=== PATIENT | male | born 1980 | race Caucasian/White ===

== ENCOUNTER 2022-05-10 17:32 | Inpatient (IN) | payer MEDICAID ==
[~2022-05-10] VITALS: Ht 175.3 cm; Wt 82.1 kg
[2022-05-10] MEDS ORDERED: CEFEPIME 1 GM in IV D5W 50 ML IV ONE (18:00)
[2022-05-10] MEDS ORDERED: VANCOMYCIN 1 GM in IV D5W 250 ML IV ONE (18:00)
[2022-05-10] MEDS ORDERED: IV NS 0.9% 1,000 ML BAG IV ONE (18:00)
[2022-05-10 18:18] LABS: BASOPHILS # (AUTO) 0.1 K/uL (0.0-0.2); EOSINOPHILS % (AUTO) 4.9 % (0.0-6.0); HEMATOCRIT 29 % (39-51); HEMOGLOBIN 9.2 g/dL (13.5-17.5); LYMPHOCYTES # (AUTO) 2.4 K/uL (0.8-4.8); LYMPHOCYTES % (AUTO) 30.1 % (20.0-44.0); MEAN CORPUSCULAR HGB CONC 32 g/dl (31.0-36.0); MEAN CORPUSCULAR VOLUME 76 fL (80-96); MONOCYTES # (AUTO) 0.6 K/uL (0.1-1.30); MONOCYTES % (AUTO) 7.1 % (2.0-12.0); NEUTROPHILS # (AUTO) 4.5 K/uL (1.8-8.9); NEUTROPHILS % (AUTO) 56.9 % (43.0-81.0); PLATELET COUNT (AUTO) 340 K/uL (150-450); RED BLOOD CELL COUNT(AUTO) 3.81 MIL/uL (4.5-6.0); WHITE BLOOD COUNT (AUTO) 7.9 K/uL (4.3-11.0)
[2022-05-10 18:48] LABS: CALCIUM, SERUM 8.8 mg/dL (8.5-10.1); CREATININE 0.9 mg/dL (0.6-1.3)
[2022-05-10] MEDS ORDERED: BUPR300T52 PO (18:49)
[2022-05-10] MEDS ORDERED: DIPH-1062 PO (18:49)
[2022-05-10] MEDS ORDERED: ACET-2605 PO (18:49)
[2022-05-10] MEDS ORDERED: BACL20TA PO (18:49)
[2022-05-10] MEDS ORDERED: ASCO-495 PO (18:49)
[2022-05-10] MEDS ORDERED: LACT1CAP71 PO (18:49)
[2022-05-10] MEDS ORDERED: ROPI0.255 PO (18:49)
[2022-05-10] MEDS ORDERED: PHEN125O3 PO (18:49)
[2022-05-10] MEDS ORDERED: CALC500T52 PO (18:49)
[2022-05-10] MEDS ORDERED: ATOR20TA PO (18:49)
[2022-05-10] MEDS ORDERED: PRAZ1CAP5 PO (18:49)
[2022-05-10] MEDS ORDERED: FERR325T23 PO (18:49)
[2022-05-10] MEDS ORDERED: POLY17PO4 PO (18:49)
[2022-05-10] MEDS ORDERED: VANC1VIA4 IV (18:49)
[2022-05-10] MEDS ORDERED: LEVE500T9 PO (18:49)
[2022-05-10] MEDS ORDERED: FAMO20TA8 PO (18:49)
[2022-05-10] MEDS ORDERED: METH5TAB2 PO (18:49)
[2022-05-10] MEDS ORDERED: ACET-868 PO (18:49)
[2022-05-10] MEDS ORDERED: ESCI20TA PO (18:49)
[2022-05-10] MEDS ORDERED: CEFT1VIA15 IM (18:49)
[2022-05-10] MEDS ORDERED: TRAZ-257 PO (18:49)
[2022-05-10] MEDS ORDERED: MENT3.5O TP (18:49)
[2022-05-10] MEDS ORDERED: TAMS-12 PO (18:49)
[2022-05-10] MEDS ORDERED: GABA600T12 PO (18:49)
[2022-05-10] MEDS ORDERED: ZOLP5TAB2 PO (18:49)
[2022-05-10] MEDS ORDERED: ZINC50TA69 PO (18:49)
[2022-05-10] MEDS ORDERED: FOLI0.4T6 PO (18:49)
[2022-05-10] MEDS ORDERED: AMIN30LI2 PO (18:49)
[2022-05-10] MEDS ORDERED: PETR113O TP (18:49)
[2022-05-10] MEDS ORDERED: METH10TA2 PO (18:49)
[2022-05-10] MEDS ORDERED: MULT-24 PO (18:49)
[2022-05-10] MEDS ORDERED: PANT40TA2 PO (18:49)
[2022-05-10 18:50] LABS: POTASSIUM 2.8 mmol/L (3.5-5.1)
[2022-05-10 18:59] LABS: BILIRUBIN,DIRECT 0.1 mg/dL (0.0-0.2); BILIRUBIN,TOTAL 0.2 mg/dL (0.2-1.0)
[2022-05-10 19:00] LABS: TOTAL PROTEIN, SERUM 8.4 g/dL (6.4-8.2)
[2022-05-10] MEDS ORDERED: IV PREMIX D5 1/2NS + KCL 1,000 ML IV ONE ×2 (19:00→19:13)
[2022-05-10] MEDS ORDERED: METHADONE HCL 5 MG TABLET PO SCH (19:30)
[2022-05-10 19:48] LABS: BILIRUBIN,URINE NEGATIVE (NEGATIVE); COLOR,URINE YELLOW (YELLOW); LEUKOCYTE ESTERASE ,URINE LARGE (NEGATIVE); NITRITE, URINE POSITIVE (NEGATIVE); PROTEIN,URINE NEGATIVE (NEGATIVE); UGLUCOSE NEGATIVE (NEGATIVE); UROBILINOGEN,URINE 0.2 EU/dL (0.2)
[2022-05-10 20:05] LABS: BACTERIA,URINE MANY /HPF (None Seen); SQUAMOUS EPITHELIAL CELL,UR None Seen /HPF (None Seen); WBC,URINE TOO NUMEROUS TO COUN /HPF (0-3)
[2022-05-10 21:43] VITALS: BP 114/67
[2022-05-10] MEDS ORDERED: Z GUARD REMEDY 4 OZ OINT TP PRN (23:30)
[2022-05-10] MEDS ORDERED: ZOLPIDEM TARTRATE 5 MG TABLET PO PRN (23:30)
[2022-05-10] MEDS ORDERED: diphenhydrAMINE HCL 25 MG CAPSULE PO PRN (23:30)
[2022-05-10] MEDS ORDERED: ACETAMINOPHEN 325 MG TABLET PO PRN (23:30)
[2022-05-10] MEDS ORDERED: METHADONE HCL 5 MG TABLET PO PRN (23:30)
[2022-05-10] MEDS ORDERED: MAGNESIUM HYDROXIDE 30 ML UDC PO PRN (23:30)
[2022-05-10] MEDS ORDERED: MAG HYDROX/AL HYDROX/SIMETH 30 ML UDC PO PRN (23:30)
[2022-05-11] MEDS: ENOXAPARIN SODIUM 40 MG/0.4 ML DISP.SYRIN SQ SCH ×2 (00:29→20:54)
[2022-05-11] MEDS ORDERED: HYDROMORPHONE 1 MG/1 ML DISP.SYRIN IV ONE (00:30)
[2022-05-11 06:27] LABS: BASOPHILS % (AUTO) 0.5 % (0.0-2.0); EOSINOPHILS % (AUTO) 3.4 % (0.0-6.0); HEMATOCRIT 28 % (39-51); HEMOGLOBIN 8.8 g/dL (13.5-17.5); LYMPHOCYTES # (AUTO) 1.8 K/uL (0.8-4.8); LYMPHOCYTES % (AUTO) 25.6 % (20.0-44.0); MEAN CORPUSCULAR HGB CONC 32 g/dl (31.0-36.0); MEAN CORPUSCULAR VOLUME 77 fL (80-96); MONOCYTES # (AUTO) 0.6 K/uL (0.1-1.30); MONOCYTES % (AUTO) 9.3 % (2.0-12.0); NEUTROPHILS # (AUTO) 4.2 K/uL (1.8-8.9); NEUTROPHILS % (AUTO) 61.2 % (43.0-81.0); PLATELET COUNT (AUTO) 328 K/uL (150-450); RED BLOOD CELL COUNT(AUTO) 3.61 MIL/uL (4.5-6.0); WHITE BLOOD COUNT (AUTO) 6.9 K/uL (4.3-11.0)
[2022-05-11 07:00] LABS: CALCIUM, SERUM 8.9 mg/dL (8.5-10.1); CREATININE 0.8 mg/dL (0.6-1.3)
[2022-05-11 07:19] LABS: THYROID STIMULATING HORMONE 4.513 uIU/mL (0.358-3.74)
[2022-05-11 08:00] VITALS: BP 115/72
[2022-05-11] MEDS ORDERED: POTASSIUM CHLORIDE 20 MEQ TAB.PRT.SR PO ONE (08:00)
[2022-05-11] MEDS: TAMSULOSIN 0.4 MG CAP.SR.24H PO SCH (08:37)
[2022-05-11] MEDS: PHENYTOIN EXTENDED RELEASE 100 MG CAPSULE PO SCH ×2 (08:37→20:54)
[2022-05-11] MEDS: FOLIC ACID 1 MG TABLET PO SCH (08:37)
[2022-05-11] MEDS: METHADONE HCL 10 MG TABLET PO SCH ×2 (08:38→16:39)
[2022-05-11] MEDS: FERROUS SULFATE (325 MG) 325 MG/TAB TABLET PO SCH (08:38)
[2022-05-11] MEDS: LEVETIRACETAM (250 MG) 250 MG TABLET PO SCH ×2 (08:38→20:54)
[2022-05-11] MEDS: VANCOMYCIN 0.75 GM in IV D5W 250 ML IV SCH ×3 (08:39→23:44)
[2022-05-11] MEDS: LACTOBACILLUS RHAMNOSUS GG 1 EACH CAP.SPRINK PO SCH ×3 (08:39→16:39)
[2022-05-11] MEDS: PANTOPRAZOLE 40 MG TABLET.DR PO SCH (08:39)
[2022-05-11] MEDS: ATORVASTATIN 10 MG TABLET PO SCH (08:39)
[2022-05-11] MEDS: BACLOFEN (10 MG) 10 MG TABLET PO SCH ×3 (08:39→16:39)
[2022-05-11] MEDS: ESCITALOPRAM OXALATE (10 MG) 10 MG TABLET PO SCH (08:39)
[2022-05-11] MEDS: CALCIUM CARBONATE (1250) 500 MG TABLET PO SCH ×2 (08:57→20:55)
[2022-05-11] MEDS: ASCORBIC ACID 500 MG TABLET PO SCH (08:57)
[2022-05-11] MEDS: ZINC SULFATE 220 MG CAPSULE PO SCH (08:57)
[2022-05-11] MEDS: BUPROPION XL 150 MG TAB.ER.24 PO SCH (08:57)
[2022-05-11] MEDS: GABAPENTIN 300 MG CAPSULE PO SCH ×3 (08:57→16:39)
[2022-05-11] MEDS: MULTIVITAMINS,THERAGRAN 1 UDTAB TABLET PO SCH (08:57)
[2022-05-11] MEDS: PROSOURCE / PROSTAT (PYXIS) 30 ML UDC PO SCH ×2 (08:57→16:40)
[2022-05-11] MEDS: POLYETHYLENE GLYCOL 3350 17 GM POWD.PACK PO SCH (08:58)
[2022-05-11] MEDS: ONDANSETRON HCL/PF 4 MG/2 ML VIAL IVP PRN (09:07)
[2022-05-11 09:16] LABS: BAND % (MANUAL) 6 % (0.0-5.0); EOSINOPHILS % (MANUAL) 3 % (0-4); LYMPHOCYTES % (MANUAL) 30 % (16-48); MONOCYTES % (MANUAL) 7 % (0-11.0); NEUTROPHILS % (MANUAL) 54 (42-76)
[2022-05-11] MEDS: CEFEPIME 1 GM in IV D5W 50 ML IV SCH ×2 (11:12→20:50)
[2022-05-11] MEDS ORDERED: SILVER NITRATE APPLICATOR 1 EA BOX TP STA (12:35)
[2022-05-11] MEDS ORDERED: LIDOCAINE 1%-EPI 1:100,000 50 ML VIAL IJ STA (12:35)
[2022-05-11] MEDS: SOD FERRIC GLUC 125 MG in IV NS 0.9% 100 ML IV SCH (14:06)
[2022-05-11 20:00] VITALS: BP 102/49
[2022-05-11] MEDS: METHADONE HCL 10 MG TABLET PO PRN (20:10)
[2022-05-11] MEDS: DAKINS QUARTER STRENGTH (0.125%) 480 ML BOTTLE TOP SCH (21:41)
[2022-05-11] MEDS: TRAZODONE 50 MG TABLET PO SCH (21:43)
[2022-05-11] MEDS: PRAZOSIN HCL 1 MG CAPSULE PO SCH (21:43)
[2022-05-11] MEDS: ropiniROLE 0.5 MG TABLET PO SCH (21:44)
[2022-05-12] MEDS: METHADONE HCL 10 MG TABLET PO PRN ×4 (06:48→21:08)
[2022-05-12 08:00] VITALS: BP 108/63
[2022-05-12] MEDS: VANCOMYCIN 0.75 GM in IV D5W 250 ML IV SCH (08:00)
[2022-05-12 08:39] LABS: CALCIUM, SERUM 8.6 mg/dL (8.5-10.1); CREATININE 0.7 mg/dL (0.6-1.3); POTASSIUM 3.4 mmol/L (3.5-5.1)
[2022-05-12 08:48] LABS: BASOPHILS % (AUTO) 0.4 % (0.0-2.0); EOSINOPHILS % (AUTO) 6.5 % (0.0-6.0); HEMATOCRIT 27 % (39-51); HEMOGLOBIN 8.6 g/dL (13.5-17.5); LYMPHOCYTES # (AUTO) 1.7 K/uL (0.8-4.8); LYMPHOCYTES % (AUTO) 27.3 % (20.0-44.0); MEAN CORPUSCULAR HGB CONC 32 g/dl (31.0-36.0); MEAN CORPUSCULAR VOLUME 77 fL (80-96); MONOCYTES # (AUTO) 0.5 K/uL (0.1-1.30); MONOCYTES % (AUTO) 8.5 % (2.0-12.0); NEUTROPHILS # (AUTO) 3.6 K/uL (1.8-8.9); NEUTROPHILS % (AUTO) 57.3 % (43.0-81.0); PLATELET COUNT (AUTO) 314 K/uL (150-450); RED BLOOD CELL COUNT(AUTO) 3.51 MIL/uL (4.5-6.0); WHITE BLOOD COUNT (AUTO) 6.2 K/uL (4.3-11.0)
[2022-05-12] MEDS: POLYETHYLENE GLYCOL 3350 17 GM POWD.PACK PO SCH (09:00)
[2022-05-12] MEDS: FOLIC ACID 1 MG TABLET PO SCH (09:25)
[2022-05-12] MEDS: LEVETIRACETAM (250 MG) 250 MG TABLET PO SCH ×2 (09:26→20:57)
[2022-05-12] MEDS: GABAPENTIN 300 MG CAPSULE PO SCH ×3 (09:26→16:25)
[2022-05-12] MEDS: ASCORBIC ACID 500 MG TABLET PO SCH (09:27)
[2022-05-12] MEDS: MULTIVITAMINS,THERAGRAN 1 UDTAB TABLET PO SCH (09:27)
[2022-05-12] MEDS: TAMSULOSIN 0.4 MG CAP.SR.24H PO SCH (09:28)
[2022-05-12] MEDS: ATORVASTATIN 10 MG TABLET PO SCH (09:28)
[2022-05-12] MEDS: PHENYTOIN EXTENDED RELEASE 100 MG CAPSULE PO SCH ×2 (09:29→20:56)
[2022-05-12] MEDS: FERROUS SULFATE (325 MG) 325 MG/TAB TABLET PO SCH (09:29)
[2022-05-12] MEDS: METHADONE HCL 10 MG TABLET PO SCH ×2 (09:30→16:25)
[2022-05-12] MEDS: PANTOPRAZOLE 40 MG TABLET.DR PO SCH (09:31)
[2022-05-12] MEDS: BACLOFEN (10 MG) 10 MG TABLET PO SCH ×3 (09:31→16:25)
[2022-05-12] MEDS: CALCIUM CARBONATE (1250) 500 MG TABLET PO SCH ×2 (09:31→20:56)
[2022-05-12] MEDS: ZINC SULFATE 220 MG CAPSULE PO SCH (09:32)
[2022-05-12] MEDS: ESCITALOPRAM OXALATE (10 MG) 10 MG TABLET PO SCH (09:32)
[2022-05-12] MEDS: PROSOURCE / PROSTAT (PYXIS) 30 ML UDC PO SCH ×2 (09:33→17:50)
[2022-05-12] MEDS: CEFEPIME 1 GM in IV D5W 50 ML IV SCH (09:33)
[2022-05-12] MEDS: LACTOBACILLUS RHAMNOSUS GG 1 EACH CAP.SPRINK PO SCH ×3 (09:48→16:25)
[2022-05-12] MEDS: BUPROPION XL 150 MG TAB.ER.24 PO SCH (09:59)
[2022-05-12] MEDS ORDERED: POTASSIUM CHLORIDE 20 MEQ TAB.PRT.SR PO SCH (10:00)
[2022-05-12] MEDS: DAKINS QUARTER STRENGTH (0.125%) 480 ML BOTTLE TOP SCH (10:00)
[2022-05-12] MEDS: SOD FERRIC GLUC 125 MG in IV NS 0.9% 100 ML IV SCH (13:57)
[2022-05-12 16:00] VITALS: BP 95/60
[2022-05-12] MEDS: VANCOMYCIN HCL 0.75 GM in IV D5W 250 ML IV SCH (17:51)
[2022-05-12 20:00] VITALS: BP 98/56
[2022-05-12] MEDS: ENOXAPARIN SODIUM 40 MG/0.4 ML DISP.SYRIN SQ SCH (20:55)
[2022-05-12] MEDS: MEROPENEM 500 MG in IV NS 0.9% 50 ML IV SCH (20:56)
[2022-05-12] MEDS: PRAZOSIN HCL 1 MG CAPSULE PO SCH (21:42)
[2022-05-12] MEDS: ropiniROLE 0.5 MG TABLET PO SCH (21:44)
[2022-05-12] MEDS: TRAZODONE 50 MG TABLET PO SCH (21:45)
[2022-05-13] MEDS: MEROPENEM 500 MG in IV NS 0.9% 50 ML IV SCH ×3 (04:42→21:16)
[2022-05-13] MEDS: VANCOMYCIN HCL 0.75 GM in IV D5W 250 ML IV SCH ×2 (05:56→18:24)
[2022-05-13 06:53] LABS: BASOPHILS % (AUTO) 0.6 % (0.0-2.0); EOSINOPHILS % (AUTO) 7.3 % (0.0-6.0); HEMATOCRIT 29 % (39-51); HEMOGLOBIN 9.3 g/dL (13.5-17.5); LYMPHOCYTES % (AUTO) 33.8 % (20.0-44.0); MEAN CORPUSCULAR HGB CONC 33 g/dl (31.0-36.0); MEAN CORPUSCULAR VOLUME 77 fL (80-96); MONOCYTES # (AUTO) 0.5 K/uL (0.1-1.30); MONOCYTES % (AUTO) 8.3 % (2.0-12.0); PLATELET COUNT (AUTO) 316 K/uL (150-450); RED BLOOD CELL COUNT(AUTO) 3.73 MIL/uL (4.5-6.0); WHITE BLOOD COUNT (AUTO) 5.9 K/uL (4.3-11.0)
[2022-05-13 07:05] LABS: CREATININE 0.7 mg/dL (0.6-1.3); POTASSIUM 3.8 mmol/L (3.5-5.1)
[2022-05-13 08:00] VITALS: BP 99/60
[2022-05-13] MEDS: PANTOPRAZOLE 40 MG TABLET.DR PO SCH (08:01)
[2022-05-13] MEDS ORDERED: MERO500V23 IV (08:43)
[2022-05-13] MEDS ORDERED: VANC750F2 IV (08:43)
[2022-05-13] MEDS: ASCORBIC ACID 500 MG TABLET PO SCH (09:53)
[2022-05-13] MEDS: MULTIVITAMINS,THERAGRAN 1 UDTAB TABLET PO SCH (09:53)
[2022-05-13] MEDS: POLYETHYLENE GLYCOL 3350 17 GM POWD.PACK PO SCH (09:53)
[2022-05-13] MEDS: CALCIUM CARBONATE (1250) 500 MG TABLET PO SCH ×2 (09:54→21:17)
[2022-05-13] MEDS: ZINC SULFATE 220 MG CAPSULE PO SCH (09:54)
[2022-05-13] MEDS: GABAPENTIN 300 MG CAPSULE PO SCH ×3 (09:54→17:57)
[2022-05-13] MEDS: ATORVASTATIN 10 MG TABLET PO SCH (09:54)
[2022-05-13] MEDS: BUPROPION XL 150 MG TAB.ER.24 PO SCH (09:54)
[2022-05-13] MEDS: FOLIC ACID 1 MG TABLET PO SCH (09:54)
[2022-05-13] MEDS: LEVETIRACETAM (250 MG) 250 MG TABLET PO SCH ×2 (09:55→21:16)
[2022-05-13] MEDS: ESCITALOPRAM OXALATE (10 MG) 10 MG TABLET PO SCH (09:55)
[2022-05-13] MEDS: TAMSULOSIN 0.4 MG CAP.SR.24H PO SCH (09:55)
[2022-05-13] MEDS: PHENYTOIN EXTENDED RELEASE 100 MG CAPSULE PO SCH ×2 (09:55→21:17)
[2022-05-13] MEDS: LACTOBACILLUS RHAMNOSUS GG 1 EACH CAP.SPRINK PO SCH ×3 (09:55→17:57)
[2022-05-13] MEDS: FERROUS SULFATE (325 MG) 325 MG/TAB TABLET PO SCH (09:55)
[2022-05-13] MEDS: METHADONE HCL 10 MG TABLET PO SCH ×3 (09:55→17:57)
[2022-05-13] MEDS: BACLOFEN (10 MG) 10 MG TABLET PO SCH ×3 (09:56→17:58)
[2022-05-13] MEDS: PROSOURCE / PROSTAT (PYXIS) 30 ML UDC PO SCH ×2 (10:06→17:58)
[2022-05-13] MEDS: DAKINS QUARTER STRENGTH (0.125%) 480 ML BOTTLE TOP SCH (10:07)
[2022-05-13] MEDS: METHADONE HCL 10 MG TABLET PO PRN ×2 (14:48→22:46)
[2022-05-13] MEDS: SOD FERRIC GLUC 125 MG in IV NS 0.9% 100 ML IV SCH (14:52)
[2022-05-13 16:00] VITALS: BP 91/59
[2022-05-13 20:00] VITALS: BP 91/52
[2022-05-13] MEDS: ropiniROLE 0.5 MG TABLET PO SCH (21:16)
[2022-05-13] MEDS: TRAZODONE 50 MG TABLET PO SCH (21:17)
[2022-05-13] MEDS: PRAZOSIN HCL 1 MG CAPSULE PO SCH (21:19)
[2022-05-13] MEDS: ENOXAPARIN SODIUM 40 MG/0.4 ML DISP.SYRIN SQ SCH (21:19)
[2022-05-14] MEDS: MEROPENEM 500 MG in IV NS 0.9% 50 ML IV SCH ×3 (04:31→20:13)
[2022-05-14] MEDS: METHADONE HCL 10 MG TABLET PO PRN ×3 (05:26→20:35)
[2022-05-14] MEDS: VANCOMYCIN HCL 0.75 GM in IV D5W 250 ML IV SCH (05:29)
[2022-05-14 07:16] LABS: CREATININE 0.7 mg/dL (0.6-1.3); POTASSIUM 3.6 mmol/L (3.5-5.1)
[2022-05-14] MEDS: PANTOPRAZOLE 40 MG TABLET.DR PO SCH (07:31)
[2022-05-14 08:00] VITALS: BP 135/71
[2022-05-14] MEDS: POLYETHYLENE GLYCOL 3350 17 GM POWD.PACK PO SCH (08:54)
[2022-05-14] MEDS: PROSOURCE / PROSTAT (PYXIS) 30 ML UDC PO SCH ×2 (08:54→16:10)
[2022-05-14] MEDS: ZINC SULFATE 220 MG CAPSULE PO SCH (08:55)
[2022-05-14] MEDS: ASCORBIC ACID 500 MG TABLET PO SCH (08:55)
[2022-05-14] MEDS: ESCITALOPRAM OXALATE (10 MG) 10 MG TABLET PO SCH (08:55)
[2022-05-14] MEDS: LACTOBACILLUS RHAMNOSUS GG 1 EACH CAP.SPRINK PO SCH ×3 (08:55→16:09)
[2022-05-14] MEDS: FOLIC ACID 1 MG TABLET PO SCH (08:55)
[2022-05-14] MEDS: BACLOFEN (10 MG) 10 MG TABLET PO SCH ×3 (08:55→16:09)
[2022-05-14] MEDS: MULTIVITAMINS,THERAGRAN 1 UDTAB TABLET PO SCH (08:55)
[2022-05-14] MEDS: CALCIUM CARBONATE (1250) 500 MG TABLET PO SCH ×2 (08:56→20:16)
[2022-05-14] MEDS: BUPROPION XL 150 MG TAB.ER.24 PO SCH (08:56)
[2022-05-14] MEDS: PHENYTOIN EXTENDED RELEASE 100 MG CAPSULE PO SCH ×2 (08:56→20:15)
[2022-05-14] MEDS: ATORVASTATIN 10 MG TABLET PO SCH (08:56)
[2022-05-14] MEDS: FERROUS SULFATE (325 MG) 325 MG/TAB TABLET PO SCH (08:56)
[2022-05-14] MEDS: METHADONE HCL 10 MG TABLET PO SCH ×2 (08:57→16:09)
[2022-05-14] MEDS: TAMSULOSIN 0.4 MG CAP.SR.24H PO SCH (08:57)
[2022-05-14] MEDS: GABAPENTIN 300 MG CAPSULE PO SCH ×3 (08:57→16:10)
[2022-05-14] MEDS: LEVETIRACETAM (250 MG) 250 MG TABLET PO SCH ×2 (08:57→20:16)
[2022-05-14] MEDS: DAKINS QUARTER STRENGTH (0.125%) 480 ML BOTTLE TOP SCH (08:58)
[2022-05-14] MEDS: SOD FERRIC GLUC 125 MG in IV NS 0.9% 100 ML IV SCH (14:35)
[2022-05-14 16:00] VITALS: BP 104/62
[2022-05-14] MEDS: VANCOMYCIN 500 MG in IV D5W 100ml IV SCH (17:33)
[2022-05-14 20:00] VITALS: BP 90/51
[2022-05-14] MEDS: ENOXAPARIN SODIUM 40 MG/0.4 ML DISP.SYRIN SQ SCH (20:17)
[2022-05-14] MEDS: TRAZODONE 50 MG TABLET PO SCH (21:57)
[2022-05-14] MEDS: ropiniROLE 0.5 MG TABLET PO SCH (21:57)
[2022-05-14] MEDS: PRAZOSIN HCL 1 MG CAPSULE PO SCH (21:57)
[2022-05-15] MEDS: MEROPENEM 500 MG in IV NS 0.9% 50 ML IV SCH ×3 (04:37→21:12)
[2022-05-15] MEDS: VANCOMYCIN 500 MG in IV D5W 100ml IV SCH ×2 (05:18→18:28)
[2022-05-15] MEDS: PANTOPRAZOLE 40 MG TABLET.DR PO SCH (07:32)
[2022-05-15 08:00] VITALS: BP 101/44
[2022-05-15] MEDS: MULTIVITAMINS,THERAGRAN 1 UDTAB TABLET PO SCH (08:18)
[2022-05-15] MEDS: ZINC SULFATE 220 MG CAPSULE PO SCH (08:18)
[2022-05-15] MEDS: FOLIC ACID 1 MG TABLET PO SCH (08:18)
[2022-05-15] MEDS: FERROUS SULFATE (325 MG) 325 MG/TAB TABLET PO SCH (08:18)
[2022-05-15] MEDS: ASCORBIC ACID 500 MG TABLET PO SCH (08:19)
[2022-05-15] MEDS: CALCIUM CARBONATE (1250) 500 MG TABLET PO SCH ×2 (08:19→21:12)
[2022-05-15] MEDS: BUPROPION XL 150 MG TAB.ER.24 PO SCH (08:19)
[2022-05-15] MEDS: LEVETIRACETAM (250 MG) 250 MG TABLET PO SCH ×2 (08:20→21:12)
[2022-05-15] MEDS: GABAPENTIN 300 MG CAPSULE PO SCH ×3 (08:20→16:22)
[2022-05-15] MEDS: METHADONE HCL 10 MG TABLET PO SCH ×2 (08:21→16:23)
[2022-05-15] MEDS: ESCITALOPRAM OXALATE (10 MG) 10 MG TABLET PO SCH (08:21)
[2022-05-15] MEDS: TAMSULOSIN 0.4 MG CAP.SR.24H PO SCH (08:21)
[2022-05-15] MEDS: BACLOFEN (10 MG) 10 MG TABLET PO SCH ×3 (08:21→16:22)
[2022-05-15] MEDS: PHENYTOIN EXTENDED RELEASE 100 MG CAPSULE PO SCH ×2 (08:21→21:12)
[2022-05-15] MEDS: LACTOBACILLUS RHAMNOSUS GG 1 EACH CAP.SPRINK PO SCH ×3 (08:22→16:22)
[2022-05-15] MEDS: POLYETHYLENE GLYCOL 3350 17 GM POWD.PACK PO SCH (08:22)
[2022-05-15] MEDS: PROSOURCE / PROSTAT (PYXIS) 30 ML UDC PO SCH ×2 (08:34→16:23)
[2022-05-15] MEDS: DAKINS QUARTER STRENGTH (0.125%) 480 ML BOTTLE TOP SCH (08:35)
[2022-05-15] MEDS: ATORVASTATIN 10 MG TABLET PO SCH (08:40)
[2022-05-15 08:43] LABS: CREATININE 0.7 mg/dL (0.6-1.3); POTASSIUM 4.1 mmol/L (3.5-5.1)
[2022-05-15] MEDS: ONDANSETRON HCL/PF 4 MG/2 ML VIAL IVP PRN (08:47)
[2022-05-15] MEDS: METHADONE HCL 10 MG TABLET PO PRN ×2 (13:00→22:26)
[2022-05-15] MEDS: SOD FERRIC GLUC 125 MG in IV NS 0.9% 100 ML IV SCH (14:27)
[2022-05-15 16:00] VITALS: BP 117/60
[2022-05-15 20:00] VITALS: BP 111/54
[2022-05-15] MEDS: TRAZODONE 50 MG TABLET PO SCH (21:13)
[2022-05-15] MEDS: ropiniROLE 0.5 MG TABLET PO SCH (21:13)
[2022-05-15] MEDS: ENOXAPARIN SODIUM 40 MG/0.4 ML DISP.SYRIN SQ SCH (21:14)
[2022-05-15] MEDS: PRAZOSIN HCL 1 MG CAPSULE PO SCH (21:14)
[2022-05-16] MEDS: MEROPENEM 500 MG in IV NS 0.9% 50 ML IV SCH ×3 (05:07→21:37)
[2022-05-16] MEDS: VANCOMYCIN 500 MG in IV D5W 100ml IV SCH ×2 (05:43→18:44)
[2022-05-16 06:41] LABS: BASOPHILS % (AUTO) 0.6 % (0.0-2.0); EOSINOPHILS % (AUTO) 6.3 % (0.0-6.0); HEMATOCRIT 30 % (39-51); HEMOGLOBIN 9.3 g/dL (13.5-17.5); LYMPHOCYTES % (AUTO) 26.6 % (20.0-44.0); MEAN CORPUSCULAR HGB CONC 32 g/dl (31.0-36.0); MEAN CORPUSCULAR VOLUME 78 fL (80-96); MONOCYTES # (AUTO) 0.6 K/uL (0.1-1.30); MONOCYTES % (AUTO) 7.5 % (2.0-12.0); NEUTROPHILS # (AUTO) 4.5 K/uL (1.8-8.9); PLATELET COUNT (AUTO) 300 K/uL (150-450); WHITE BLOOD COUNT (AUTO) 7.6 K/uL (4.3-11.0)
[2022-05-16 06:46] LABS: CALCIUM, SERUM 9.1 mg/dL (8.5-10.1); CREATININE 0.8 mg/dL (0.6-1.3); POTASSIUM 3.7 mmol/L (3.5-5.1)
[2022-05-16] MEDS: PANTOPRAZOLE 40 MG TABLET.DR PO SCH (07:55)
[2022-05-16] MEDS: PHENYTOIN EXTENDED RELEASE 100 MG CAPSULE PO SCH ×2 (09:18→21:37)
[2022-05-16] MEDS: BUPROPION XL 150 MG TAB.ER.24 PO SCH (09:19)
[2022-05-16] MEDS: LACTOBACILLUS RHAMNOSUS GG 1 EACH CAP.SPRINK PO SCH ×3 (09:19→18:19)
[2022-05-16] MEDS: ZINC SULFATE 220 MG CAPSULE PO SCH (09:19)
[2022-05-16] MEDS: POLYETHYLENE GLYCOL 3350 17 GM POWD.PACK PO SCH (09:19)
[2022-05-16] MEDS: METHADONE HCL 10 MG TABLET PO SCH ×2 (09:19→18:20)
[2022-05-16] MEDS: LEVETIRACETAM (250 MG) 250 MG TABLET PO SCH ×2 (09:19→21:37)
[2022-05-16] MEDS: BACLOFEN (10 MG) 10 MG TABLET PO SCH ×3 (09:20→18:19)
[2022-05-16] MEDS: TAMSULOSIN 0.4 MG CAP.SR.24H PO SCH (09:20)
[2022-05-16] MEDS: CALCIUM CARBONATE (1250) 500 MG TABLET PO SCH ×2 (09:20→21:38)
[2022-05-16] MEDS: FOLIC ACID 1 MG TABLET PO SCH (09:21)
[2022-05-16] MEDS: FERROUS SULFATE (325 MG) 325 MG/TAB TABLET PO SCH (09:21)
[2022-05-16] MEDS: ATORVASTATIN 10 MG TABLET PO SCH (09:21)
[2022-05-16] MEDS: GABAPENTIN 300 MG CAPSULE PO SCH ×3 (09:21→18:19)
[2022-05-16] MEDS: ESCITALOPRAM OXALATE (10 MG) 10 MG TABLET PO SCH (09:21)
[2022-05-16] MEDS: ASCORBIC ACID 500 MG TABLET PO SCH (09:21)
[2022-05-16] MEDS: MULTIVITAMINS,THERAGRAN 1 UDTAB TABLET PO SCH (09:21)
[2022-05-16] MEDS: PROSOURCE / PROSTAT (PYXIS) 30 ML UDC PO SCH ×2 (09:22→18:19)
[2022-05-16 09:50] VITALS: BP 91/60
[2022-05-16] MEDS: DAKINS QUARTER STRENGTH (0.125%) 480 ML BOTTLE TOP SCH (10:46)
[2022-05-16 15:59] VITALS: BP 101/71
[2022-05-16 20:00] VITALS: BP 111/65
[2022-05-16] MEDS: ropiniROLE 0.5 MG TABLET PO SCH (21:35)
[2022-05-16] MEDS: TRAZODONE 50 MG TABLET PO SCH (21:37)
[2022-05-16] MEDS: PRAZOSIN HCL 1 MG CAPSULE PO SCH (21:38)
[2022-05-16] MEDS: ENOXAPARIN SODIUM 40 MG/0.4 ML DISP.SYRIN SQ SCH (21:42)
[2022-05-17] MEDS: METHADONE HCL 10 MG TABLET PO PRN ×2 (00:24→08:55)
[2022-05-17] MEDS: MEROPENEM 500 MG in IV NS 0.9% 50 ML IV SCH ×2 (04:56→13:01)
[2022-05-17] MEDS: VANCOMYCIN 500 MG in IV D5W 100ml IV SCH (06:15)
[2022-05-17 06:55] LABS: CALCIUM, SERUM 8.8 mg/dL (8.5-10.1); CREATININE 0.7 mg/dL (0.6-1.3); POTASSIUM 3.6 mmol/L (3.5-5.1)
[2022-05-17 08:00] VITALS: BP_SYST 120; BP_SYST 126; BP_DIAS 65; BP_DIAS 81
[2022-05-17] MEDS: LEVETIRACETAM (250 MG) 250 MG TABLET PO SCH (08:51)
[2022-05-17] MEDS: ASCORBIC ACID 500 MG TABLET PO SCH (08:52)
[2022-05-17] MEDS: MULTIVITAMINS,THERAGRAN 1 UDTAB TABLET PO SCH (08:52)
[2022-05-17] MEDS: TAMSULOSIN 0.4 MG CAP.SR.24H PO SCH (08:52)
[2022-05-17] MEDS: PHENYTOIN EXTENDED RELEASE 100 MG CAPSULE PO SCH (08:52)
[2022-05-17] MEDS: GABAPENTIN 300 MG CAPSULE PO SCH ×2 (08:52→13:01)
[2022-05-17] MEDS: BUPROPION XL 150 MG TAB.ER.24 PO SCH (08:53)
[2022-05-17] MEDS: CALCIUM CARBONATE (1250) 500 MG TABLET PO SCH (08:53)
[2022-05-17] MEDS: LACTOBACILLUS RHAMNOSUS GG 1 EACH CAP.SPRINK PO SCH ×2 (08:53→13:01)
[2022-05-17] MEDS: ZINC SULFATE 220 MG CAPSULE PO SCH (08:53)
[2022-05-17] MEDS: PANTOPRAZOLE 40 MG TABLET.DR PO SCH (08:53)
[2022-05-17] MEDS: ATORVASTATIN 10 MG TABLET PO SCH (08:53)
[2022-05-17] MEDS: BACLOFEN (10 MG) 10 MG TABLET PO SCH ×2 (08:53→13:03)
[2022-05-17] MEDS: FOLIC ACID 1 MG TABLET PO SCH (08:53)
[2022-05-17] MEDS: ESCITALOPRAM OXALATE (10 MG) 10 MG TABLET PO SCH (08:54)
[2022-05-17] MEDS: POLYETHYLENE GLYCOL 3350 17 GM POWD.PACK PO SCH (08:55)
[2022-05-17] MEDS: PROSOURCE / PROSTAT (PYXIS) 30 ML UDC PO SCH (08:57)
[2022-05-17] MEDS: DAKINS QUARTER STRENGTH (0.125%) 480 ML BOTTLE TOP SCH (08:58)
[2022-05-17] MEDS: FERROUS SULFATE (325 MG) 325 MG/TAB TABLET PO SCH (08:58)
[2022-05-17] MEDS: METHADONE HCL 10 MG TABLET PO SCH ×2 (09:00→13:03)
== END 2022-05-17 15:00 | DRG 310 ==
LOC: ER 17:35 → MED 21:02
PROVIDERS: ADMIT Nurse Practitioner Family
PROC: 0QB10ZZ Excision of Sacrum, Open Approach (ICD-10-PCS; principal; 2022-05-11)
PROC: 02HV33Z Insertion of Infusion Device into Superior Vena Cava, Percutaneous Approach (ICD-10-PCS; 2022-05-13)
PROC: B548ZZA Ultrasonography of Superior Vena Cava, Guidance (ICD-10-PCS; 2022-05-13)
DX: M46.28 Osteomyelitis of vertebra, sacral and sacrococcygeal region (principal); L89.154 Pressure ulcer of sacral region, stage 4; E44.0 Moderate protein-calorie malnutrition; R53.2 Functional quadriplegia; L89.626 Pressure-induced deep tissue damage of left heel; E88.09 Other disorders of plasma-protein metabolism, not elsewhere classified; D50.9 Iron deficiency anemia, unspecified; F19.11 Other psychoactive substance abuse, in remission; N39.0 Urinary tract infection, site not specified; Z86.73 Personal history of transient ischemic attack (TIA), and cerebral infarction without residual deficits; G40.909 Epilepsy, unspecified, not intractable, without status epilepticus; N31.9 Neuromuscular dysfunction of bladder, unspecified; Z20.822 Contact with and (suspected) exposure to COVID-19; W34.00XS Accidental discharge from unspecified firearms or gun, sequela; Z79.899 Other long term (current) drug therapy; B96.89 Other specified bacterial agents as the cause of diseases classified elsewhere; E87.6 Hypokalemia; Z98.890 Other specified postprocedural states; G89.4 Chronic pain syndrome; M62.50 Muscle wasting and atrophy, not elsewhere classified, unspecified site; M62.472 Contracture of muscle, left ankle and foot; M62.471 Contracture of muscle, right ankle and foot; Z16.12 Extended spectrum beta lactamase (ESBL) resistance; I10 Essential (primary) hypertension; B96.1 Klebsiella pneumoniae [K. pneumoniae] as the cause of diseases classified elsewhere
CPT/HCPCS: 36415; 36569; 71045-TC; 72192-TC; 80048-TC; 80061-TC; 80076-TC; 80202-TC; 81001; 82728-TC; 83540-TC; 83605-TC; 83735-TC; 84443-TC; 85025-TC; 85652-TC; 85730-TC; 87040-TC; 87086-TC; 87186-TC; 94799-TC; 97112-TC; 97530-TC; A4349; A6253; A6403; C9803; G0378; J0692; J1170; J1650; J2185; J2405; J2916; J3370; J3490; J7030; J7050; J7060